=== PATIENT | male | born 1940 | race Caucasian/White ===

== ENCOUNTER → 2017-01-29 | Outpatient (REF) | payer MEDICARE, BC | LOC: M SMT 12:56 | PROVIDERS: ATTEND Urology | DX: N40.2 Nodular prostate without lower urinary tract symptoms (principal) | CPT/HCPCS: 36415; 51798; 81001; 84153; G0463 ==

== ENCOUNTER → 2018-05-18 | Outpatient (REF) | payer MEDICARE, BC ==
[2018-05-18 20:09] LABS: FERRITIN 229 NG/ML (26-388); IRON (FE) 85 UG/DL (65-175); PERCENT SATURATION 22.8 % (19.7-50.0); TOTAL IRON BINDING CAPACITY 373 UG/DL (250-450)
== END ==
LOC: M LAB REF 18:33
DX: N18.3 Chronic kidney disease, stage 3 (moderate) (principal); D63.1 Anemia in chronic kidney disease
CPT/HCPCS: 83550

== ENCOUNTER → 2018-12-01 | Outpatient (CLI) | payer MEDICARE, BC ==
--- NOTE | 2018-12-01 17:09 | REP ---
CT ABDOMEN AND PELVIS WITHOUT CONTRAST: CT abdomen and pelvis performed without oral or IV contrast. Sagittal and coronal reconstruction images are performed. Visualized lung bases demonstrate no infiltrate. Liver, gallbladder, spleen, adrenals and pancreas are grossly unremarkable. 1.2 cm hypodense nodule in the upper pole of the right kidney probably represents a cyst. Probable exophytic complex cyst is seen in the lower pole of the right kidney 1.1 cm in diameter. There is a calcification in the right lower pole collecting system 3 mm in diameter. There is a cyst in the upper pole of the left kidney measuring 1.7 cm in diameter and another more inferiorly in the left kidney, in the lower pole, measuring 3.2 cm. There is a 5 mm calcification in the left lower pole collecting system. There is no hydroureteronephrosis. No bladder calculus is seen. There is moderate atherosclerotic calcification of the abdominal aorta without aneurysm. I see no adenopathy, free air or free fluid. I see no bowel wall thickening. There is no pelvic mass. There are small bilateral inguinal hernias containing fat. There are degenerative changes of the spine. IMPRESSION: Two probable cysts right kidney. There also appear to be two cysts of the left kidney. There is a calculus in each renal collecting system. Further evaluation of the suspected renal cysts may be performed with ultrasound to confirm that they are in fact cysts. Otherwise no evidence of mass, adenopathy, free air or free fluid. There are small bilateral inguinal hernias containing fat. Electronically Signed by Deshawn Morin MD 12/01/2018 07:28 P
== END ==
LOC: M RAD 13:53
PROVIDERS: ATTEND Internal Medicine Nephrology
DX: N28.1 Cyst of kidney, acquired (principal); K40.20 Bilateral inguinal hernia, without obstruction or gangrene, not specified as recurrent; R63.4 Abnormal weight loss

== ENCOUNTER → 2019-04-06 | Outpatient (REF) | payer MEDICARE, BC ==
[2019-04-06 18:23] LABS: BASO # 0.1 10^3/uL (0.0-0.2); EOS # 0.2 10^3/uL (0.0-0.50); EOS % 3.8 % (0.0-3.0); HEMATOCRIT 40.3 % (42.0-52.0); LYMPH # 1.6 10^3/uL (1.5-4.5); LYMPH % 25.7 % (24.0-44.0); MEAN CORPUSCULAR HEMOGLOBIN 32.5 pg (27.0-33.0); MEAN CORPUSCULAR HGB CONC 32.3 g/dl (32.0-36.5); MEAN CORPUSCULAR VOLUME 100.8 fl (80.0-96.0); MONO # 0.5 10^3/uL (0.0-0.8); MONO % 7.6 % (0.0-5.0); NEUTROPHILS # 3.7 10^3/uL (1.8-7.7); NEUTROPHILS % 61.4 % (36.0-66.0); PLATELET COUNT, AUTOMATED 207 10^3/uL (150-450)
== END ==
LOC: M LAB REF 17:21
PROVIDERS: ATTEND Internal Medicine Nephrology
DX: N18.3 Chronic kidney disease, stage 3 (moderate) (principal)

== ENCOUNTER → 2019-04-29 | Outpatient (CLI) | payer MEDICARE, BC ==
[2019-04-29 19:37] LABS: FOLATE 20.6 NG/ML; RHEUMATOID FACTOR QUANT < 10.0 IU/ML (<15.0); VITAMIN B12 LEVEL 1688 PG/ML
[2019-04-29 19:58] LABS: HEMOGLOBIN A1c 5.8 %
[2019-05-05 16:11] LABS: ANTINUCLEAR ANTIBODIES DIRECT Negative (Negative); VITAMIN B1 LEVEL WHOLE BLOOD 131.1 nmol/L (66.5-200.0); VITAMIN B6,PYRIDOXAL PHOSPHATE 4.3 ug/L (5.3-46.7); VITAMIN E(ALPHA TOCOPHEROL) 9.1 mg/L (9.0-29.0); VITAMIN E(GAMMA TOCOPHEROL) 0.7 mg/L (0.5-4.9)
== END ==
LOC: M LABDRWAD 14:25
PROVIDERS: ATTEND Physician Assistant Medical
DX: R51 Headache (principal); M79.2 Neuralgia and neuritis, unspecified; R41.3 Other amnesia

== ENCOUNTER → 2019-05-14 | Outpatient (REF) | payer MEDICARE, BC ==
[2019-05-14 13:15] LABS: ALBUMIN 4.1 GM/DL (3.2-5.2); ALT/SGPT < 6 U/L (12-78); BILIRUBIN,TOTAL 0.6 MG/DL (0.2-1.0); BLOOD UREA NITROGEN 33 MG/DL (7-18); CARBON DIOXIDE LEVEL 29 MEQ/L (21-32); CHLORIDE LEVEL 107 MEQ/L (98-107); CHOLESTEROL LEVEL 163 MG/DL (<200); CREATININE FOR GFR 1.62 MG/DL (0.70-1.30); GLOMERULAR FILTRATION RATE 44.3 (>42); GLUCOSE, FASTING 94 MG/DL (70-100); HDL CHOLESTEROL 56 MG/DL (>40); LDL CHOLESTEROL 86 MG/DL (<100); NON-HDL-C 107 MG/DL; POTASSIUM SERUM 3.8 MEQ/L (3.5-5.1); PROSTATIC SPECIFIC AG MONITOR 0.64 NG/ML (< 4.00); SODIUM LEVEL 143 MEQ/L (136-145); TOTAL PROTEIN 7.2 GM/DL (6.4-8.2); TRIGLYCERIDES LEVEL 106 MG/DL (<150)
== END ==
LOC: M SFHCADAM 09:49
PROVIDERS: ATTEND Physician Assistant
DX: E78.00 Pure hypercholesterolemia, unspecified (principal); N40.2 Nodular prostate without lower urinary tract symptoms

== ENCOUNTER → 2019-10-14 | Outpatient (CLI) | payer MEDICARE, BC ==
--- NOTE | 2019-10-14 10:31 | REP ---
URINARY BLADDER ULTRASOUND: Real-time sonographic evaluation of the urinary bladder performed. Bladder measures 10.2 x 9.1 x 7.0 cm for a total volume of 424 mL. No mass or calculus is seen. Posterior bladder wall is somewhat irregular likely due to impression by the prostate. There are bilateral ureteral jets seen with Doppler color evaluation. Postvoid residual is 344 mL. IMPRESSION: Postvoid residual 81% as discussed above. Somewhat irregular posterior wall of bladder likely due to impression by the prostate. Electronically Signed by Deshawn Morin MD 10/14/2019 12:48 P
--- NOTE | 2019-10-14 10:32 | REP ---
RENAL ULTRASOUND: Real-time sonographic evaluation of the kidneys performed. The kidneys are normal in size and echotexture, right kidney measuring 11.7 x 5.0 x 4.9 cm and left kidney 10.4 x 5.4 x 4.9 cm. There is no evidence of hydronephrosis bilaterally. 8 mm stone is seen in the mid left renal collecting system. There are bilateral cysts present, some demonstrating internal low level echoes. Cystic structure in the right upper pole measures 1.5 cm in diameter. Exophytic cystic structure with low level echoes in the mid right kidney measures 9 mm and another in the lower pole measures 5 mm. In the left kidney, upper pole medially, two cystic structures measure 1.8 x 1.6 x 1.7 cm and 1.4 x 1.3 x 1.4 cm. There is a left lower pole cystic structure 3.6 x 3.3 x 3.8 cm. IMPRESSION: No hydronephrosis. Bilateral renal cysts, some of which demonstrate internal low level echoes. There is a mid left renal calculus 8 mm in diameter. Electronically Signed by Deshawn Morin MD 10/14/2019 12:48 P
== END ==
LOC: M RAD 09:01
PROVIDERS: ATTEND Internal Medicine Nephrology
DX: N18.3 Chronic kidney disease, stage 3 (moderate) (principal); N28.1 Cyst of kidney, acquired; R33.9 Retention of urine, unspecified

== ENCOUNTER → 2019-10-28 | Outpatient (REF) | payer MEDICARE, BC ==
[2019-10-28 13:30] LABS: APPEARANCE, URINE CLEAR (CLEAR); BACTERIA, URINE AUTO NEGATIVE (NEGATIVE); BILIRUBIN, URINE AUTO NEGATIVE (NEGATIVE); BLOOD, URINE BLOOD NEGATIVE (NEGATIVE); COLOR, URINE YELLOW (YELLOW); GLUCOSE, URINE (UA) AUTO NEGATIVE (NEGATIVE); KETONE, URINE AUTO NEGATIVE (NEGATIVE); LEUKOCYTE ESTERASE, URINE AUTO NEGATIVE (NEGATIVE); MUCUS, URINE SMALL (NEGATIVE); NITRITE, URINE AUTO NEGATIVE (NEGATIVE); PROTEIN, URINE AUTO NEGATIVE (NEGATIVE); RBC, URINE AUTO 1 /HPF (0-3); SPECIFIC GRAVITY URINE AUTO 1.013 (1.002-1.035); SQUAMOUS EPITHELIAL CELL UR AU 0 /HPF (0-6); UROBILINOGEN, URINE AUTO 0.2 mg/dL (0.0-2.0); WBC, URINE AUTO 0 /HPF (0-3)
== END ==
LOC: M SMT 13:10
PROVIDERS: ATTEND Nurse Practitioner Women's Health
DX: N40.1 Benign prostatic hyperplasia with lower urinary tract symptoms (principal)
CPT/HCPCS: 51798; 81001; 87086; G0463

== ENCOUNTER → 2020-09-12 | Outpatient (REF) | payer MEDICARE, BC ==
[2020-09-12 12:53] LABS: HEMATOCRIT 41.3 % (42.0-52.0); HEMOGLOBIN 13.1 g/dl (13.5-17.5); MEAN CORPUSCULAR HEMOGLOBIN 32.3 pg (27.0-33.0); MEAN CORPUSCULAR HGB CONC 31.7 g/dl (32.0-36.5); MEAN CORPUSCULAR VOLUME 101.7 fl (80.0-96.0); PLATELET COUNT, AUTOMATED 221 10^3/uL (150-450); RED BLOOD COUNT 4.06 10^6/uL (4.30-6.10); WHITE BLOOD COUNT 4.5 10^3/uL (4.0-10.0)
[2020-09-12 13:36] LABS: ALBUMIN 3.7 GM/DL (3.2-5.2); BILIRUBIN,TOTAL 0.5 MG/DL (0.2-1.0); CALCIUM LEVEL 10.5 MG/DL (8.8-10.2); CHOLESTEROL RISK RATIO 3.054 (<5); CREATININE FOR GFR 1.49 MG/DL (0.70-1.30); FREE T4 0.96 NG/DL (0.76-1.46); GLOMERULAR FILTRATION RATE 48.6 (>42); POTASSIUM SERUM 4.4 MEQ/L (3.5-5.1); THYROID STIMULATING HORMONE 1.44 uIU/ML (0.358-3.740); TOTAL PROTEIN 7.3 GM/DL (6.4-8.2); URIC ACID 2.7 MG/DL (3.5-7.2)
== END ==
LOC: M SFHCADAM 09:41
PROVIDERS: ATTEND Family Medicine
DX: N18.32 Chronic kidney disease, stage 3b (principal); D63.1 Anemia in chronic kidney disease; E78.5 Hyperlipidemia, unspecified; M10.9 Gout, unspecified; N40.2 Nodular prostate without lower urinary tract symptoms
CPT/HCPCS: 80053; 80061; 84439; 84443; 84550; 85027; G0103; G0463

== ENCOUNTER → 2021-01-31 | Outpatient (CLI) | payer MEDICARE, BC ==
--- NOTE | 2021-01-31 13:56 | REP ---
INDICATION: RT CAROTID STENOSIS COMPARISON: None. TECHNIQUE: Real-time ultrasound evaluation and duplex Doppler interrogation of the extracranial carotid vasculature is performed. FINDINGS: There is mild to moderate plaquing and narrowing in both carotid bulbs extending into the internal and external carotid arteries. Luminal narrowing is less than 50% on the right. There is no evidence of hemodynamically significant stenosis of the right internal carotid artery. There is elevated peak systolic velocity of 151.4 centimeter/second in the left carotid bulb which is suspicious for stenosis at that location 50-69%.. The left vertebral artery demonstrates normal direction of flow. The right vertebral artery is not visualized. 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 No evidence of stenosis right internal carotid artery. Mild to moderate plaquing bilaterally of the extracranial carotid vasculature. <Electronically signed by Deshawn Morin > 01/31/21 1925
== END ==
LOC: M RAD 12:48
PROVIDERS: ATTEND Surgery
DX: I65.22 Occlusion and stenosis of left carotid artery (principal)

== ENCOUNTER → 2021-05-31 | Outpatient (REF) | payer MEDICARE, BC ==
[2021-05-31 18:52] LABS: MAGNESIUM LEVEL 2.3 MG/DL (1.8-2.4); PERCENT SATURATION 30.1 % (19.7-50.0)
== END ==
LOC: M LAB REF 17:14
PROVIDERS: ATTEND Internal Medicine Nephrology
DX: N18.32 Chronic kidney disease, stage 3b (principal); D63.1 Anemia in chronic kidney disease; E83.42 Hypomagnesemia

== ENCOUNTER → 2021-07-23 | Outpatient (REF) | payer MEDICARE, BC ==
[2021-07-23 18:36] LABS: BASO # 0.1 10^3/uL (0.0-0.2); BASO % 0.6 % (0.0-1.0); EOS # 0.1 10^3/uL (0.0-0.5); EOS % 0.8 % (0.0-3.0); HEMATOCRIT 37.8 % (42.0-52.0); HEMOGLOBIN 12.6 g/dl (13.5-17.5); LYMPH # 1.4 10^3/uL (1.5-5.0); LYMPH % 15.8 % (24.0-44.0); MEAN CORPUSCULAR HGB CONC 33.3 g/dl (32.0-36.5); MONO % 11.6 % (2.0-8.0); NEUTROPHILS % 70.5 % (36.0-66.0); PLATELET COUNT, AUTOMATED 251 10^3/uL (150-450); RED BLOOD COUNT 3.82 10^6/uL (4.30-6.10); WHITE BLOOD COUNT 8.6 10^3/uL (4.0-10.0)
[2021-07-23 18:59] LABS: CREATININE FOR GFR 2.24 MG/DL (0.70-1.30); GLOMERULAR FILTRATION RATE 30.3 (>42); POTASSIUM SERUM 4.3 MEQ/L (3.5-5.1)
[2021-07-23 19:00] LABS: ALBUMIN 2.6 GM/DL (3.2-5.2); BILIRUBIN,TOTAL 0.6 MG/DL (0.2-1.0)
== END ==
LOC: M LABDRWAD 18:07 → M LAB REF 18:07
PROVIDERS: ATTEND Physician Assistant Medical
DX: R55 Syncope and collapse (principal); G35 Multiple sclerosis; R56.9 Unspecified convulsions

== ENCOUNTER → 2021-10-01 | Outpatient (REF) | payer MEDICARE, BC | LOC: M LAB REF 17:10 | PROVIDERS: ATTEND Internal Medicine Nephrology | DX: N18.32 Chronic kidney disease, stage 3b (principal); E83.42 Hypomagnesemia ==